=== PATIENT | female | born 1945 | race Two or more races ===

== ENCOUNTER 2022-11-25 15:38 | Inpatient (IN) | payer OTHER, MEDICAID ==
[~2022-11-25] VITALS: Ht 157.5 cm; Wt 82.4 kg
[2022-11-25] MEDS: ACCU-CHEK COMFORT CURVE STRIP VI SCH (00:52)
[2022-11-25 16:40] LABS: Basophils # (auto) 0.1 10 ^3/uL (0-0.2); Basophils % (auto) 0.5 % (0.0-2.0); Eosinophils # (auto) 0.1 10 ^3/uL (0-0.8); Eosinophils % (auto) 0.6 % (0.0-7.0); Hematocrit 41.2 % (36.0-46.0); Lymphocytes # (auto) 2.5 10 ^3/uL (0.4-5.4); Lymphocytes % (auto) 20.2 % (10.0-50.0); Mean Corpuscular Volume 85.3 fL (80.0-100.0); Neutrophils # (auto) 8.6 10 ^3/uL (1.6-8.6); Neutrophils % (auto) 70.7 % (37.0-80.0); Nucleated Red Blood Cells % 0.1 %; Red Blood Cells 4.83 10^6/uL (4.0-5.20); Red Cell Distribution Width 13.9 % (11.8-14.3); White Blood Cell 12.2 10^3/uL (4.4-10.8)
[2022-11-25] MEDS ORDERED: HYDROcodone-ACET 5/325MG TAB PO ONE (16:45)
[2022-11-25 17:00] LABS: Albumin 3.5 g/dL (3.4-5.0); Calcium 9.4 mg/dL (8.5-10.1); Magnesium 2.3 mg/dL (1.6-2.6); Potassium 4.6 mmol/L (3.5-5.1)
[2022-11-25 17:05] LABS: BUN/Creatinine Ratio 39.2; Bilirubin, Total 0.5 mg/dL (0.2-1.0); Total Protein 7.5 g/dL (6.4-8.2)
[2022-11-25] MEDS ORDERED: ACETAMINOPHEN 325 MG TAB PO PRN (17:45)
[2022-11-25] MEDS ORDERED: ONDANSETRON HCL 4 MG/2 ML VIAL IV PRN (17:45)
[2022-11-25] MEDS ORDERED: LISI-275 PO (17:49)
[2022-11-25] MEDS ORDERED: INSLANTI SC (17:49)
[2022-11-25] MEDS ORDERED: DEXTROSE (50%) 50ML SYRG IV PRN (19:45)
[2022-11-25] MEDS: SODIUM CHLOR 0.9% PF (SALINE LOCK) 10ML VIAL/SYR IV SCH (22:00)
[2022-11-26] MEDS: INSULIN LANTUS (GLARGINE) 1 /0.01ml (100units/ml) SC SCH ×2 (00:53→22:06)
[2022-11-26] MEDS: InsuLIN REG 1unit/0.01ml Soln (100units/ml) SC SCH ×5 (00:54→22:06)
[2022-11-26] MEDS: HYDROcodone-ACET 5/325MG TAB PO PRN ×2 (04:33→13:51)
[2022-11-26] MEDS: SODIUM CHLOR 0.9% PF (SALINE LOCK) 10ML VIAL/SYR IV SCH ×3 (05:54→22:05)
[2022-11-26] MEDS: ACCU-CHEK COMFORT CURVE STRIP VI SCH ×4 (06:58→22:05)
[2022-11-26 07:29] LABS: Basophils # (auto) 0.1 10 ^3/uL (0-0.2); Basophils % (auto) 0.8 % (0.0-2.0); Eosinophils # (auto) 0.1 10 ^3/uL (0-0.8); Eosinophils % (auto) 1.1 % (0.0-7.0); Hematocrit 37.8 % (36.0-46.0); Hemoglobin 12.9 g/dL (12.2-16.2); Lymphocytes # (auto) 2.2 10 ^3/uL (0.4-5.4); Mean Corpuscular Hemoglobin 29.2 pg (28.0-32.0); Mean Corpuscular Volume 85.7 fL (80.0-100.0); Monocytes # (auto) 0.8 10 ^3/uL (0-1.3); Monocytes % (auto) 9.5 % (0.0-12.0); Neutrophils # (auto) 5.3 10 ^3/uL (1.6-8.6); Neutrophils % (auto) 62.6 % (37.0-80.0); Red Cell Distribution Width 14.2 % (11.8-14.3); White Blood Cell 8.5 10^3/uL (4.4-10.8)
[2022-11-26 07:52] LABS: Albumin 2.9 g/dL (3.4-5.0); BUN/Creatinine Ratio 40.7; Calcium 8.7 mg/dL (8.5-10.1); Potassium 3.9 mmol/L (3.5-5.1)
[2022-11-26 07:55] LABS: Bilirubin, Total 0.4 mg/dL (0.2-1.0)
[2022-11-26] MEDS: PANTOPRAZOLE 40 MG/10 ML VIAL INJ IV SCH (09:59)
[2022-11-26] MEDS: LISINOPRIL 5 MG TAB PO SCH (10:00)
[2022-11-26 12:04] LABS: Urine Bacteria MANY /hpf (None Seen); Urine Blood TRACE /uL (Negative); Urine Mucus FEW (None Seen); Urine Specific Gravity 1.021 (1.001-1.035); Urine WBC 1171 /hpf (0 - 5)
[2022-11-26 14:59] VITALS: BP 160/70
[2022-11-26 15:15] VITALS: BP 140/77
[2022-11-26] MEDS ORDERED: GLIP5TAB12 PO (15:32)
[2022-11-26 17:00] VITALS: BP 160/70
[2022-11-26] MEDS ORDERED: hydrALAZINE HCL 20 MG/ML VL IV PRN (17:15)
[2022-11-27 05:00] VITALS: BP 120/91
[2022-11-27] MEDS: SODIUM CHLOR 0.9% PF (SALINE LOCK) 10ML VIAL/SYR IV SCH ×3 (06:27→22:07)
[2022-11-27] MEDS: ACCU-CHEK COMFORT CURVE STRIP VI SCH ×4 (06:27→22:07)
[2022-11-27] MEDS: InsuLIN REG 1unit/0.01ml Soln (100units/ml) SC SCH ×4 (06:30→22:23)
[2022-11-27 09:00] VITALS: BP 135/85
[2022-11-27] MEDS: DOCUSATE SOD 100 MG CAP PO PRN (10:50)
[2022-11-27] MEDS: PANTOPRAZOLE 40 MG/10 ML VIAL INJ IV SCH (10:50)
[2022-11-27] MEDS: LISINOPRIL 5 MG TAB PO SCH (10:55)
[2022-11-27] MEDS: INSULIN LANTUS (GLARGINE) 1 /0.01ml (100units/ml) SC SCH (22:24)
[2022-11-27 22:30] VITALS: BP 152/74
[2022-11-28] MEDS: HYDROcodone-ACET 5/325MG TAB PO PRN ×3 (00:13→16:28)
[2022-11-28 02:00] VITALS: BP 136/70
[2022-11-28 05:12] VITALS: BP 144/73
[2022-11-28] MEDS: InsuLIN REG 1unit/0.01ml Soln (100units/ml) SC SCH ×4 (06:20→21:55)
[2022-11-28] MEDS: ACCU-CHEK COMFORT CURVE STRIP VI SCH ×4 (06:20→21:52)
[2022-11-28] MEDS: SODIUM CHLOR 0.9% PF (SALINE LOCK) 10ML VIAL/SYR IV SCH ×3 (06:21→21:52)
[2022-11-28 09:00] VITALS: BP 153/87
[2022-11-28] MEDS: PANTOPRAZOLE 40 MG/10 ML VIAL INJ IV SCH (11:01)
[2022-11-28] MEDS: LISINOPRIL 5 MG TAB PO SCH (11:03)
[2022-11-28 13:00] VITALS: BP 128/60
[2022-11-28 17:00] VITALS: BP 128/68
[2022-11-28] MEDS: INSULIN LANTUS (GLARGINE) 1 /0.01ml (100units/ml) SC SCH (21:53)
[2022-11-28 22:00] VITALS: BP 105/55
[2022-11-28] MEDS: DOCUSATE SOD 100 MG CAP PO PRN (22:04)
[2022-11-29 05:00] VITALS: BP 126/61
[2022-11-29] MEDS: SODIUM CHLOR 0.9% PF (SALINE LOCK) 10ML VIAL/SYR IV SCH (05:46)
[2022-11-29] MEDS: InsuLIN REG 1unit/0.01ml Soln (100units/ml) SC SCH ×2 (06:03→11:30)
[2022-11-29] MEDS: ACCU-CHEK COMFORT CURVE STRIP VI SCH ×2 (06:03→11:30)
[2022-11-29] MEDS: PANTOPRAZOLE 40 MG/10 ML VIAL INJ IV SCH (08:56)
[2022-11-29] MEDS: LISINOPRIL 5 MG TAB PO SCH (08:57)
[2022-11-29 09:00] VITALS: BP 142/69
[2022-11-29 09:39] VITALS: BP 125/61
== END 2022-11-29 11:45 | DRG 552 ==
LOC: EDBD 15:38 → ER 15:42 → OVERFLOW 17:31 → EAST 11-26 15:46 → WEST WING 11-26 16:02
PROVIDERS: ADMIT Nurse Practitioner Family; ATTEND Family Medicine
DX: M54.50 Low back pain, unspecified (principal); E11.65 Type 2 diabetes mellitus with hyperglycemia; I10 Essential (primary) hypertension; R29.6 Repeated falls; Z20.822 Contact with and (suspected) exposure to COVID-19; G89.29 Other chronic pain; M25.562 Pain in left knee; Z60.2 Problems related to living alone; W18.39XA Other fall on same level, initial encounter; Y93.89 Activity, other specified; Z79.4 Long term (current) use of insulin; Z91.81 History of falling; Y92.090 Kitchen in other non-institutional residence as the place of occurrence of the external cause; Y99.8 Other external cause status
CPT/HCPCS: 36415; 70450; 71045; 72131; 72192; 73562; 80053; 81001; 82962; 83735; 84484; 85025; 87426; 93005; 96374; 97110; 97116; 97163; 97530; C9113; G0378; J1815

== ENCOUNTER 2025-04-28 11:06 | Outpatient (CLI) | payer MEDICARE, MEDICAID ==
[~2025-04-28 11:06] MED LIST: GLIP5TAB21 PO; INSLANTI SC; LISI-275 PO
== END 2025-04-28 17:00 | disposition home or self-care (01) ==
LOC: Rad HDHVI 11:06
PROVIDERS: ATTEND Internal Medicine Cardiovascular Disease
DX: I35.8 Other nonrheumatic aortic valve disorders (principal); I10 Essential (primary) hypertension
CPT/HCPCS: 93306

== ENCOUNTER 2025-05-11 08:43 | Outpatient (CLI) | payer MEDICARE, MEDICAID ==
[~2025-05-11] VITALS: Ht 152.4 cm; Wt 94.3 kg
[2025-05-11] MEDS ORDERED: ADENOSINE 90 MG/30 ML INJ IV ONE ×2 (08:44→09:22)
[2025-05-11] MEDS ORDERED: ADENOSINE 79 MG in GIVE UN-DILUTED 0 ML IV ONE (10:15)
== END 2025-05-11 17:00 | disposition home or self-care (01) ==
LOC: Rad HDHVI 08:43
PROVIDERS: ATTEND Internal Medicine Cardiovascular Disease
DX: I49.1 Atrial premature depolarization (principal); R60.0 Localized edema; I10 Essential (primary) hypertension; E78.00 Pure hypercholesterolemia, unspecified; E11.9 Type 2 diabetes mellitus without complications; Z13.6 Encounter for screening for cardiovascular disorders
CPT/HCPCS: 78452; 93017; A9500; J0153

== ENCOUNTER 2025-05-27 15:15 | Outpatient (CLI) | payer MEDICARE, MEDICAID | END 2025-05-27 17:00 | disposition home or self-care (01) | LOC: Rad HDHVI 15:15 | PROVIDERS: ATTEND Internal Medicine Cardiovascular Disease | DX: R60.0 Localized edema (principal) | CPT/HCPCS: 93925 ==